=== PATIENT | male | born 1945 | race Caucasian/White ===

== ENCOUNTER → 2016-09-03 | Outpatient (CLI) | payer OTHER ==
[~2016-09-03] MED LIST: CMD5 PO; DICL1GEL12 TOP; ENOX0.8I8 SQ; FEXO1TAB49 PO; HYDR-5688 PO; PRLSR20 PO; RIVA1TAB4 PO; ROSU20TA PO; SERT-234 PO
[2016-09-03 13:31] LABS: BASO % 0.6 %; BASO ABS # 0.04 K/uL (0-0.2); COMPLETE YES; HEMATOCRIT 43.6 % (42-52); IG% 0.2 %; LYMPH % 30.2 %; MEAN CELL VOLUME 91.2 fL (80-100); MEAN CORPUSCULAR HEMOGLOBIN 31.6 pg (25-34); MEAN CORPUSCULAR HGB CONC 34.6 g/dl (32-36); MEAN PLATELET VOLUME 9.6 fL (7.4-10.4); MONO % 10.7 %; NEUT % 55.3 %; PLATELET COUNT 169 K/uL (130-400); RED BLOOD COUNT 4.78 M/uL (4.7-6.1); WHITE BLOOD COUNT 6.29 K/uL (4.8-10.8)
== END | disposition home or self-care (01) ==
LOC: C.LABMFLN 07:29
PROVIDERS: ATTEND Family Medicine
DX: R06.00 Dyspnea, unspecified (principal); I26.99 Other pulmonary embolism without acute cor pulmonale

== ENCOUNTER → 2016-10-07 | Outpatient (CLI) | payer OTHER ==
[2016-10-07 13:59] LABS: CHOLESTEROL/HDL RATIO 3.7
== END | disposition home or self-care (01) ==
LOC: C.LABMFLN 08:03
PROVIDERS: ATTEND Family Medicine
DX: Z00.00 Encounter for general adult medical examination without abnormal findings (principal); E78.00 Pure hypercholesterolemia, unspecified; I26.99 Other pulmonary embolism without acute cor pulmonale

== ENCOUNTER → 2016-12-11 | Outpatient (CLI) | payer OTHER ==
[2016-12-11 14:53] LABS: BASO % 0.1 %; BASO ABS # 0.01 K/uL (0-0.2); COMPLETE YES; EOS % 0.2 %; HEMATOCRIT 44.4 % (42-52); IG% 0.6 %; LYMPH % 17.9 %; LYMPH ABS # 1.59 K/uL (1.2-3.4); MEAN CELL VOLUME 92.1 fL (80-100); MEAN CORPUSCULAR HGB CONC 34.7 g/dl (32-36); MONO % 7.3 %; NEUT % 73.9 %; PLATELET COUNT 244 K/uL (130-400); RED BLOOD COUNT 4.82 M/uL (4.7-6.1); WHITE BLOOD COUNT 8.87 K/uL (4.8-10.8)
[2016-12-11 14:56] LABS: INR 1.1 (0.9-1.1)
[2016-12-11 15:09] LABS: BLOOD UREA NITROGEN 20 mg/dl (7-18); BUN/CREATININE RATIO 20.4 (10-20); CALCIUM 9.4 mg/dl (8.5-10.1); CARBON DIOXIDE 26 mmol/L (21-32); CHLORIDE 105 mmol/L (98-107); GLUCOSE 96 mg/dl (70-99); POTASSIUM 4.4 mmol/L (3.5-5.1); SODIUM 139 mmol/L (136-145)
== END | disposition home or self-care (01) ==
LOC: C.CPL 12:48
PROVIDERS: ATTEND Orthopaedic Surgery
DX: Z01.810 Encounter for preprocedural cardiovascular examination (principal); Z01.812 Encounter for preprocedural laboratory examination; M18.0 Bilateral primary osteoarthritis of first carpometacarpal joints; I26.99 Other pulmonary embolism without acute cor pulmonale

== ENCOUNTER → 2017-04-08 | Outpatient (CLI) | payer OTHER ==
[~2017-04-08] MED LIST changes: -ENOX0.8I8 SQ
[2017-04-08 14:01] LABS: ALT/SGPT 39 U/L (12-78); AST/SGOT 30 U/L (15-37); BLOOD UREA NITROGEN 15 mg/dl (7-18); BUN/CREATININE RATIO 15.9 (10-20); CALCIUM 9.2 mg/dl (8.5-10.1); CARBON DIOXIDE 26 mmol/L (21-32); CHLORIDE 108 mmol/L (98-107); CHOLESTEROL 208 mg/dl (0-200); CREATININE 0.94 mg/dl (0.60-1.40); GLUCOSE 104 mg/dl (70-99); POTASSIUM 4.1 mmol/L (3.5-5.1); SODIUM 142 mmol/L (136-145); TRIGLYCERIDES 492 mg/dl (0-150)
[2017-04-08 14:03] LABS: CHOLESTEROL/HDL RATIO 5.1; HDL CHOLESTEROL 41 mg/dl; PROSTATE SPECIFIC ANTIGEN 0.233 ng/ml (0.000-4.000)
== END | disposition home or self-care (01) ==
LOC: C.LABMFLN 07:34
PROVIDERS: ATTEND Family Medicine
DX: E78.00 Pure hypercholesterolemia, unspecified (principal); Z12.5 Encounter for screening for malignant neoplasm of prostate; I10 Essential (primary) hypertension; I26.99 Other pulmonary embolism without acute cor pulmonale

== ENCOUNTER → 2017-12-10 | Outpatient (CLI) | payer OTHER ==
[~2017-12-10] MED LIST changes: -CMD5 PO; -HYDR-5688 PO; +OXYC-57 PO; -RIVA1TAB4 PO; +WARF5TAB90 PO
[2017-12-10 13:07] LABS: HEMATOCRIT 41.1 % (42-52); HEMOGLOBIN 14.1 g/dL (14.0-18.0); MEAN CELL VOLUME 90.7 fL (80-100); MEAN CORPUSCULAR HEMOGLOBIN 31.1 pg (25-34); MEAN CORPUSCULAR HGB CONC 34.3 g/dl (32-36); MEAN PLATELET VOLUME 9.7 fL (7.4-10.4); PLATELET COUNT 179 K/uL (130-400); RED CELL DISTRIBUTION WIDTH CV 13.3 % (11.5-14.5); RED CELL DISTRIBUTION WIDTH SD 43.6 fL (36.4-46.3)
[2017-12-10 13:18] LABS: INR 1.2 (0.9-1.1)
== END | disposition home or self-care (01) ==
LOC: C.LABMFLN 07:11
PROVIDERS: ATTEND Family Medicine
DX: I26.99 Other pulmonary embolism without acute cor pulmonale (principal)

== ENCOUNTER → 2017-12-11 | Day surgery (SDC) | payer OTHER ==
[2017-11-19 13:53] VITALS: BMI 34.0
[2017-11-27 09:35] VITALS: Ht 170.2 cm; Wt 99.7 kg
[~2017-12-11] VITALS: Ht 170.2 cm; Wt 99.7 kg
[~2017-12-11] MED LIST changes: +ATROPINE SULFATE 0.1 MG/ML 5ML SYR IV PRN; +BUPIVACAINE 0.25% 30 ML VIAL ONE; +CEFAZOLIN 2000MG IV PUSH 15 ML IV SCH; +DEXAMETHASONE SOD INJ 4 MG/ML VIAL ONE; +EpHEDrine SULFATE INJ 50 MG/ML AMP IV PRN; +EpINEphrine INJ 1MG/ML AMP 1 MG/ML AMP ONE; +FENTANYL CITRATE INJ 50 MCG/1 ML 2 ML VIAL ONE; +FLUMAZENIL 0.1 MG/1 ML 10 ML VIAL IV PRN; +HYDROmorphone INJ 0.5 MG/0.5 ML SYR IV PRN; +KETOROLAC TROMETHAMINE 15 MG/ML VIAL IV. PRN; +LACTATED RINGER'S 1000ML 1,000 ML IV SCH; +LIDOCAINE HCL 2% 2 ML VIAL (20MG/ML) ONE; +MEPERIDINE HCL 25 MG/ML CARP IV PRN; +MIDAZOLAM HCL 1 MG/ML 2ML VIAL ONE; +NALOXONE HCL 0.4 MG/1 ML VIAL/CARP IV PRN; +ONDANSETRON INJ 2 MG/ML 2 ML VIAL IV PRN; +ONDANSETRON INJ 2 MG/ML 2 ML VIAL ONE; +OXYCODONE/ACETAMINOPHEN 5-325 TAB PO PRN; +PHENYLEPHRINE 100MCG/ML 5ML SYR IV PRN; +PROPOFOL IV EMULSION 10 MG/ML 20 ML VIAL ONE; +SODIUM CHLORIDE 0.9% 1000ML 1,000 ML IV SCH
--- NOTE | 2017-12-11 06:42 | History & Physical Bridge - SC ---
H&P Re-Evaluation Bridge Note: I have examined the patient, reviewed the History & Physical and in the interval since the performance of the History & Physical I have noted the following changes of clinical significance: No changes noted
--- NOTE | 2017-12-11 08:26 | [facility] Post Operative Brief Note ---
Immediate Operative Summary Operative Date December 11, 2017. 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 Elizabeth Petty Repair Service Dispatcher Surgeon(s) Scott Luo PA-C Estimated Blood Loss 5 cc Findings Consistent with Post-Op Diagnosis Specimens None Anesthesia Type General Complication(s) none Disposition Disposition: Recovery Room / PACU
--- NOTE | 2017-12-11 08:42 | DIAGNOSTIC IMAGING REPORT ---
R SURGICNTR WRIST 2 VIEWS HISTORY: 72 years-old Male RT CMC JT ARTHROPLASTY status post right wrist arthroplasty COMPARISON: Right hand radiographs 11/17/2017 TECHNIQUE: Single spot fluoroscopic image of the right wrist was obtained utilizing 12 seconds fluoroscopy time. FINDINGS: Radiodense metallic density foci are seen overlying the midshaft second metacarpal and first metacarpal base laterally. Postoperative changes from resection of the trapezium. Expected postsurgical soft tissue swelling and deep tissue air. No acute fracture or malalignment. IMPRESSION: Status post resection of the trapezium. The above report was generated using voice recognition software. It may contain grammatical, syntax or spelling errors. Electronically signed by: King Rosado M.D. 12/11/2017 8:40 AM Dictated Date/Time: 12/11/2017 8:38 AM
--- NOTE | 2017-12-11 08:50 | Discharge Instructions-SurgCtr ---
Discharge Instructions Date of Service December 11, 2017. Visit Reason for Visit: Bilateral Primary Arthrosis 1ST [facility] Joint Discharge Discharge Diagnosis / Problem: SAME ABOVE Discharge Goals Goal(s): Decrease discomfort, Improve function Medications Stopped Medications Name(s): see anticoag. Restart Stopped Medication(s): MAY RESTART 12/10/2017 Activity Recommendations Activity Limitations: as noted below Lifting Limitations: until after follow-up appointment Anesthesia . Post Anesthesia Instructions: If you have had General Anesthesia or IV Sedation: * Do not drive today. * Resume driving when surgeon permits. * Do not make important decisions or sign legal documents today. * Call surgeon for: 1. Temperature elevations greater than 101 degrees F. 2. Uncontrollable pain. 3. Excessive bleeding. 4. Persistent nausea and vomiting. 5. Medication intolerance (nausea, vomiting or rash). * For nausea and vomiting use only clear liquids such as: tea, soda, bouillon until nausea subsides, then gradually increase diet as tolerated. * If you have any concerns or questions, call your surgeon's office. If physician is unavailable and it is an emergency, call 911 or go to the nearest emergency room. . Instructions / Follow-Up Instructions / Follow-Up MEDICATIONS: * Resume previous medications unless instructed otherwise by your surgeon. * Always take pain medication on a full stomach or with food to avoid upset stomach. * Do not drink alcohol or drive while taking narcotics. * Ibuprofen or Tylenol may be taken if narcotic not needed. SPECIAL CARE INSTRUCTIONS: __ None _X_ Keep extremity elevated and iced x 48 hours; apply ice 20-30 minutes 8-10 times/day. May remove at night. __ Sling __24 hrs/day __ Remove at night __ Shoulder Immobilizer __ 24 hrs/day __ Remove at night _X_ Dressing _X_ Maintain until seen in office, may shower with plastic over site __ Remove dressings in 24-48 hours and then may shower __ Cover incisions with band-aids after showering __ Do not remove steri-strips Call physician if chills or temperature rises above 102 degrees or pain unrelieved by prescribed pain medications at . . Diet Recommendations Home Diet: no limitations Fluid Restriction: None Procedures Procedures Performed: Right Carpometacarpal Joint Arthroplasty Pending Studies Studies pending at discharge: no Medical Emergencies . Who to Call and When: Medical Emergencies: If at any time you feel your situation is an emergency, please call 911 immediately. . Non-Emergent Contact Non-Emergency issues call your: Primary Care Provider Call Non-Emergent contact if: you have a fever, temperature is above 101.5 . . "Provider Documentation" section prepared by Lacho Luo. .
[2017-12-11] MEDS: LABETALOL HCL IV 5 MG/ML 20ML IV PRN ×3 (09:00→09:24)
[2017-12-11] MEDS: FENTANYL CITRATE INJ 50 MCG/1 ML 2 ML VIAL IV PRN ×3 (09:01→09:13)
--- NOTE | 2017-12-11 09:42 | Anesthesia Progress Nt - [facility] ---
Anesthesia Post Op Note Date & Time December 11, 2017 at 09:41 Vital Signs Pain Intensity: 4 Vital Signs Past 12 Hours Date Time Temp Pulse Resp B/P (MAP) Pulse Ox O2 Delivery O2 Flow Rate FiO2 12/11/17 09:36 36.6 69 16 163/97 94 Room Air 12/11/17 09:34 66 10 12/11/17 09:34 66 10 89 12/11/17 09:31 169/99 12/11/17 09:29 68 6 12/11/17 09:29 68 6 97 12/11/17 09:26 165/108 12/11/17 09:24 69 6 96 12/11/17 09:24 68 6 12/11/17 09:21 169/97 12/11/17 09:19 72 16 96 12/11/17 09:19 71 16 12/11/17 09:16 188/112 12/11/17 09:14 67 8 97 12/11/17 09:14 67 8 12/11/17 09:11 174/88 12/11/17 09:09 71 16 12/11/17 09:09 71 16 97 12/11/17 09:08 68 10 12/11/17 09:08 68 10 96 12/11/17 09:06 176/110 12/11/17 09:03 78 16 12/11/17 09:03 78 16 97 12/11/17 09:01 170/127 12/11/17 08:58 78 10 97 12/11/17 08:58 78 10 12/11/17 08:56 168/124 12/11/17 08:53 75 14 12/11/17 08:53 74 14 98 12/11/17 08:51 170/102 12/11/17 08:49 174/99 12/11/17 08:48 36.1 82 12 174/99 96 Mask 5 12/11/17 06:34 36.6 65 18 161/80 (107) 99 Room Air Notes Mental Status: alert / awake / arousable, participated in evaluation Pt Amnestic to Procedure: Yes Nausea / Vomiting: adequately controlled Pain: adequately controlled Airway Patency, RR, SpO2: stable & adequate BP & HR: stable & adequate, see Notes Hydration State: stable & adequate Anesthetic Complications: no major complications apparent The patient was hypertensive in the PACU and treated with labetalol.
--- NOTE | 2017-12-11 09:42 | OPERATIVE REPORT ---
DATE OF OPERATION: 12/11/2017 PREOPERATIVE DIAGNOSIS: Carpometacarpal arthritis of the right wrist. POSTOPERATIVE DIAGNOSIS: Carpometacarpal arthritis of the right wrist. PROCEDURE: Right thumb suspension arthroplasty of the CMC joint. SURGEON: Abundio Petty DO. INDUSTRIAL HYGENIST: Michael Luo PA-C, whose assistance was necessary for retraction and closure. ANESTHESIA: General. COMPLICATIONS: None. CONDITION: Stable to PACU. 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 He has failed extensive conservative treatment including multiple injections and elected to undergo suspension arthroplasty. DESCRIPTION OF PROCEDURE: On 12/11/2017, he arrived at [facility] for the above procedure. He was seen in the preoperative holding area and the operative extremity was identified and signed. He was given a preoperative antibiotic, taken back to the operating room, laid on the table in supine position and put under general anesthesia. The right wrist was then prepped and draped in sterile fashion. Time-out was done. The patient's operative extremity was properly identified. A radial approach was used. Dissection was taken down to the capsule and care was taken to protect the neurovascular structures. The abductor pollicis was elevated dorsally and some of the thenar muscle mass was elevated palmarly. This gave a nice radial exposure to the joint. The capsule was incised. The suspension arthroplasty was essentially done with an Arthrex CMC TightRope. A guide pin was passed through the base of the thumb metacarpal up to the middle portion of the index metacarpal. A small incision was made at the index metacarpal and the guide pin was advanced. The Arthrex CMC TightRope was then passed in retrograde fashion so the knot would be on the thumb metacarpal side. The button sat nice and flushed on the first metacarpal. Before the trapezium was removed, the button was tied on the thumb metacarpal. Fluoroscopy was used and I was happy with the overall placement and tension. The trapezium was then removed in piecemeal fashion. Fluoroscopy was used to ensure complete excision. The thumb was then tested and moved under real time fluoroscopy and I was very happy with the overall tension. The final knots were then tied. The capsule was then closed with #0 Vicryl suture. Skin was closed with 2-0 Vicryl and 4-0 nylon suture. He was then placed in a thumb spica splint, extubated, transferred to a [facility] and taken to postanesthesia care in stable condition. He tolerated the procedure well. I attest to the content of the Intraoperative Record and any orders documented therein. Any exception s are noted below.
[2017-12-11 09:49] VITALS: TEMP 36.7
[2017-12-11 10:15] VITALS: BP 110/59; O2SAT 95
== END | disposition home or self-care (01) ==
LOC: X.SURG 06:18
PROVIDERS: ATTEND Orthopaedic Surgery
DX: M19.041 Primary osteoarthritis, right hand (principal); M06.9 Rheumatoid arthritis, unspecified; F32.9 Major depressive disorder, single episode, unspecified; E78.00 Pure hypercholesterolemia, unspecified; E78.5 Hyperlipidemia, unspecified; E66.9 Obesity, unspecified; I10 Essential (primary) hypertension; Z88.5 Allergy status to narcotic agent; Z88.8 Allergy status to other drugs, medicaments and biological substances; Z88.2 Allergy status to sulfonamides; Z87.891 Personal history of nicotine dependence; Z87.442 Personal history of urinary calculi; Z79.01 Long term (current) use of anticoagulants; Z86.711 Personal history of pulmonary embolism

== ENCOUNTER → 2018-02-19 | Outpatient (CLI) | payer OTHER ==
[~2018-02-19] MED LIST changes: -ATROPINE SULFATE 0.1 MG/ML 5ML SYR IV PRN; -BUPIVACAINE 0.25% 30 ML VIAL ONE; -CEFAZOLIN 2000MG IV PUSH 15 ML IV SCH; -DEXAMETHASONE SOD INJ 4 MG/ML VIAL ONE; -EpHEDrine SULFATE INJ 50 MG/ML AMP IV PRN; -EpINEphrine INJ 1MG/ML AMP 1 MG/ML AMP ONE; -FENTANYL CITRATE INJ 50 MCG/1 ML 2 ML VIAL ONE; -FLUMAZENIL 0.1 MG/1 ML 10 ML VIAL IV PRN; -HYDROmorphone INJ 0.5 MG/0.5 ML SYR IV PRN; -KETOROLAC TROMETHAMINE 15 MG/ML VIAL IV. PRN; -LACTATED RINGER'S 1000ML 1,000 ML IV SCH; -LIDOCAINE HCL 2% 2 ML VIAL (20MG/ML) ONE; -MEPERIDINE HCL 25 MG/ML CARP IV PRN; -MIDAZOLAM HCL 1 MG/ML 2ML VIAL ONE; -NALOXONE HCL 0.4 MG/1 ML VIAL/CARP IV PRN; -ONDANSETRON INJ 2 MG/ML 2 ML VIAL IV PRN; -ONDANSETRON INJ 2 MG/ML 2 ML VIAL ONE; -OXYCODONE/ACETAMINOPHEN 5-325 TAB PO PRN; -PHENYLEPHRINE 100MCG/ML 5ML SYR IV PRN; -PROPOFOL IV EMULSION 10 MG/ML 20 ML VIAL ONE; -SODIUM CHLORIDE 0.9% 1000ML 1,000 ML IV SCH
[2018-02-19 12:34] LABS: HEMATOCRIT 42.2 % (42-52); HEMOGLOBIN 14.4 g/dL (14.0-18.0); MEAN CELL VOLUME 91.5 fL (80-100); MEAN CORPUSCULAR HEMOGLOBIN 31.2 pg (25-34); MEAN CORPUSCULAR HGB CONC 34.1 g/dl (32-36); MEAN PLATELET VOLUME 10.1 fL (7.4-10.4); PLATELET COUNT 248 K/uL (130-400); RED CELL DISTRIBUTION WIDTH CV 13.5 % (11.5-14.5); RED CELL DISTRIBUTION WIDTH SD 44.5 fL (36.4-46.3); WHITE BLOOD COUNT 4.75 K/uL (4.8-10.8)
== END | disposition home or self-care (01) ==
LOC: C.LABMFLN 07:15
PROVIDERS: ATTEND Family Medicine
DX: I26.99 Other pulmonary embolism without acute cor pulmonale (principal)